=== PATIENT | female | born 1925 | race African-American/Black ===

== ENCOUNTER 2016-08-29 11:34 | Inpatient (IN) | payer MEDICARE, OTHER ==
--- NOTE | ~2016-08-29 | EKG ---
PATIENT: JOSE JEAN UNIT #: [id number] Ventricular Rate: 88 BPM Atrial Rate: 227 BPM QRS Duration: 84 ms Q-T Interval: 388 ms QTC Calculation(Bezet): 469 ms Calculated R [place]: 28 degrees Calculated T [place]: -53 degrees Diagnosis Line: Atrial fibrillation Diagnosis Line: Abnormal QRS-T angle, consider primary T wave Diagnosis Line: abnormality Diagnosis Line: Abnormal ECG Diagnosis Line: When compared with ECG of 30-MAY-2015 04:37, Diagnosis Line: Inverted T waves have replaced nonspecific T wave Diagnosis Line: abnormality in Inferior leads Diagnosis Line: Confirmed by JOSEPHINE GIBBONS MD ([id number]) on 08/30/2016 Diagnosis Line: 5:40:52 AM INTERPRETING MD: SHAI QUINONEZ
--- NOTE | ~2016-08-29 | EKG ---
PATIENT: JOSE JEAN UNIT #: [id number] Ventricular Rate: 71 BPM Atrial Rate: 72 BPM QRS Duration: 84 ms Q-T Interval: 436 ms QTC Calculation(Bezet): 473 ms Calculated R [place]: 2 degrees Calculated T [place]: -31 degrees Diagnosis Line: Atrial fibrillation Diagnosis Line: Nonspecific ST and T wave abnormality Diagnosis Line: Abnormal ECG Diagnosis Line: When compared with ECG of 29-AUG-2016 10:56, Diagnosis Line: Nonspecific T wave abnormality no longer evident Diagnosis Line: in Lateral leads Diagnosis Line: Confirmed by ANGELIQUE BARTON MD ([id number]) on Diagnosis Line: 09/01/2016 7:26:19 AM INTERPRETING MD: CATRACHITO
--- NOTE | ~2016-08-29 | HP ---
Unit #: [id number] #: [id number] Patient: JOSE JEAN [id number] [facility]. [place], [place] [address] [id number] I MR#: [id number] NAME: JOSE JEAN ROOM: 334 Age: 89 Sex: F Admission Date: 08/29/2016 : 1925 Attending Physician: Terry Daniel M.D. Primary Care Physician: Kiya Moreno A.P.R.N. 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 Apparently, she has been out of her Lasix for two weeks and been slowly and progressively short of air until it got markedly worse this morning, at which time she arrived in the emergency room. She had a fairly elevated BNP. Chest x-ray was consistent with CHF, and the patient is admitted for further evaluation and treatment. Patient's initial cardiac enzymes are within normal limits. She was not hypoxic on room air but is hypertensive. She has already been seen by Cardiology and been started on IV Lasix. Currently, she appears to be comfortable sitting in bed at about 30-degree angle without any oxygen on. The patient is a poor historian, and there is no family here. She is unclear about her medications that she takes at home, but on past medical history, there is a listed allergy to ibuprofen. Her medications per her own typed out list brought to the ER shows prescriptions for Namzaric 20/10 at 1 daily, Januvia 100 mg daily, allopurinol 300 mg daily, gabapentin 100 mg daily, paricalcitol 1 mg daily, Centrum Silver 1 daily, hydralazine 50 mg b.i.d., Coreg 6.25 mg b.i.d., Lasix 120 mg daily, warfarin 3 mg daily, simvastatin 10 mg daily, MiraLax 17 grams daily p.r.n., Lantus 30 units a.m. and 10 units p.m. with meals, Symbicort 160/4.5 at 2 puffs q.12, Proventil 2 puffs q.i.d. p.r.n., and nitroglycerin patch 0.1 mg daily. PAST SURGICAL HISTORY 1. Some sort of right shoulder surgery. 2. Bilateral hip replacements. 3. Open reduction and internal fixation of right femoral fracture. PAST SURGICAL HISTORY 1. Chronic atrial fibrillation. 2. Chronic anticoagulation. 3. 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 4. Congestive heart failure. 5. Deep vein thrombosis. 6. Hyperlipidemia. 7. Hypertension. 8. Asthma. 9. Osteoarthritis. 10. Dementia. 11. Chronic kidney disease stage 3. Unit #: [id number] #: [id number] Patient: JOSE JEAN SOCIAL HISTORY Prior smoker. No alcohol or street drug use. . FAMILY HISTORY Noncontributory. PHYSICAL EXAMINATION GENERAL: She is awake, alert, oriented x2, and in no acute distress. VITAL SIGNS: Afebrile, pulse 84, respirations 22, blood pressure 188/78, and room air O2 saturation 97%. HEENT: Unremarkable. NECK: Supple without JVD, bruits, adenopathy, or thyromegaly. CHEST: Diffusely decreased breath sounds with bibasilar rales. HEART: Irregularly irregular without an S3 gallop or murmur appreciated. ABDOMEN: Soft, nondistended, and nontender, with positive bowel sounds and no hepatosplenomegaly. EXTREMITIES: With 2+ pitting edema of the bilateral lower extremities with chronic venous stasis changes in the pretibial areas. GENITOURINARY/RECTAL: Deferred. NEUROLOGIC: Grossly intact except for poor memory. DIAGNOSTIC STUDIES LABORATORY: CBC normal except for a platelet count of 115,000. Cardiac enzymes normal x2 sets. CMP normal except for a BUN of 22, creatinine 1.5, and a GFR of 35.7. Alkaline phosphatase is 281. BNP is 590. PT-INR is 1.4. IMAGING: Chest x-ray no official report, but per the ER physician, showed CHF. CARDIOLOGY: EKG shows atrial fibrillation with an abnormal T wave but is otherwise normal. Rate was 88 beats per minute. IMPRESSION 1. Recurrent congestive heart failure secondary to noncompliance. 2. Chronic kidney disease stage 3. 3. Gout. 4. Subtherapeutic prothrombin time. 5. Thrombocytopenia. 6. Hypertension. 7. Dementia. 8. Chronic atrial fibrillation. 9. Hyperlipidemia. 10. Type 2 diabetes mellitus with peripheral neuropathy and nephropathy. 11. Asthma. 12. History of deep vein thrombosis. PLAN Diurese with IV Lasix. Lower blood pressure. Increase warfarin. Override with Lovenox 30 mg subcutaneous q.24 hours and adjust it for renal failure until her PT-INR is above 2. Healthy heart diet with 1800 mL fluid restriction. Cardiology has been consulted. Further evaluation pending results of the above. Renal function and prothrombin times will be followed on a daily basis. Dictated by Terry Daniel M.D. Unit #: [id number] #: [id number] Patient: JOSE JEAN LARS/campos TD: 08/29/2016 18:19 JOB #: [id number] HISTORY AND PHYSICAL Page 1 of 1 X Terry Daniel MD X HISTORY AND PHYSICAL
--- NOTE | ~2016-08-29 | DS ---
Unit #: [id number] #: [id number] Patient: JOSE JEAN [id number] [address] [place], [place] [address] [id number] I MR#: [id number] NAME: JOSE JEAN ROOM: 334 Age: 89 Sex: F Admission Date: 08/29/2016 : 1925 Discharge Date: 09/07/2016 Attending Physician: Terry Daniel M.D. Primary Care Physician: Kiya Moreno A.P.R.N. DISCHARGE SUMMARY PRINCIPAL DISCHARGE DIAGNOSES 1. Acute on chronic diastolic congestive heart failure. 2. Chronic kidney disease stage 3. 3. Gout. 4. Thrombocytopenia. 5. Hypertension. 6. Dementia. 7. Chronic atrial fibrillation with significant pauses. 8. Subtherapeutic ProTime. 9. Hyperlipidemia. 10. Type 2 diabetes mellitus with peripheral neuropathy and nephropathy. 11. Asthma. 12. History of deep vein thrombosis. PROCEDURES None. CONSULTANTS Dr. Milner. 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 She apparently stopped taking her Lasix 2 weeks prior to admission. She slowly but surely became more and more short of breath to the point where she became markedly worse on the morning of admission. In the ER she had a fairly elevated BNP. Chest x-ray was consistent with CHF. Initial cardiac enzymes were normal. She was hypertensive and admitted for further evaluation and therapy. On admission her platelet count was 115,000. Cardiac enzymes were normal x2 sets. BUN was 22, creatinine 1.5, GFR 35, alkaline phosphatase 281. BNP 590. INR was 1.4. EKG - A fib, abnormal T wave; otherwise, normal. HOSPITAL COURSE Admitted to a monitored bed. Started on IV Lasix. Started on subcu Lovenox. Cardiology was consulted. Healthy heart diet, 1,800 mL fluid restriction. ProTimes followed. Patient developed some significant pauses while here. Pacemaker was entertained, but the family refused. Two-D echo showed an EF of 50% to 55%, moderate concentric left ventricular hypertrophy, septal hypokinesis, moderate mitral regurgitation, mild mitral stenosis. right ventricular systolic pressure 51 mmHg. Patient Unit #: [id number] #: [id number] Patient: JOSE JEAN unable to get off O2 with hypoxemia on room air. Warfarin was held for the pacemaker but then had to be restarted after they refused pacemaker placement. Adjustments were made in her antihypertensives, as well as her other medications. Currently she is back on her warfarin, covered with Lovenox until INR is above 2. She apparently has a bed at [facility] and will be transferred today. DISCHARGE DIET She is currently on heart healthy diet, constant carb diet, 1,800 mL fluid restriction. FOLLOWUP Daily ProTimes. Have a CBC and a BMP in about 3 days. CURRENT MEDS 1. Combivent unit dose Mini-Neb q.i.d. 2. Tylenol 650 q. 4 p.r.n. for pain or fever. 3. Lovenox 100 mg subcu daily until INR is equal to or above 2. 4. Warfarin 5 mg daily. Hold for INR above 3. 5. Neurontin 100 mg daily. 6. Januvia 50 mg daily. 7. Dulera 100/5 two puffs q.12. 8. Norvasc 5 mg b.i.d. 9. MiraLAX 17 grams daily. 10. Namenda XR 28 mg daily. 11. Aricept 10 mg daily. 12. Furosemide 40 mg p.o. b.i.d. 13. Zocor 10 mg p.o. q.h.s. 14. Hydralazine 50 mg q.6 hours. 15. Levemir 20 units a.m. and 5 units p.m. 16. Low dose sliding scale insulin a.c. and h.s. 17. Zyloprim 300 mg daily. 18. Multivitamin 1 daily. 19. Zemplar 1 mcg daily. 20. Isosorbide dinitrate 40 mg p.o. b.i.d. 21. O2 at 2 liters nasal cannula continuously. Dictated by... Terry Daniel M.D. Abdirashid TD: 09/07/2016 08:42 JOB #: [id number] DISCHARGE SUMMARY Page 1 of 1 X Terry Daniel MD DISCHARGE SUMMARY
--- NOTE | ~2016-08-29 | CT57 ---
[facility] A Service of [facility] & [facility] RADIOLOGY TEXT RESULTS PATIENT: JOSE JEAN LOCATION: [facility] 334-01 : [birth year] UNIT #: [id number] AGE: [address]: Terry Daniel MD SEX: F ORDER DR: [id number] [facility] [address] [facility]. [place], [place] [address] [id number] I MR#: [id number] Acc #: [id number] NAME: JOSE JEAN : 1925 SEX: F STUDY DATE/TIME: 09/03/2016 9:58 UNIT: [address] ROOM: [facility] STUDY DESCRIPTION: CT Chest Wo Cont Attending Physician: Terry Daniel M.D. Ordering Physician: Terry Daniel M.D. Primary Care Physician: Kiya Moreno A.P.R.N. MEDICAL IMAGING REPORT This report is preliminary unless electronic signature is present EXAM Chest CT 09/03 INDICATIONS Left lower lobe opacity on chest x-ray. CHF and shortness of air. Cough. Bilateral lower extremity swelling. Symptoms since 08/25/2016. History of hypertension. TECHNIQUE Axial noncontrast images were obtained through the chest. Multiplanar reformats were obtained. This CT exam was performed with one or more of the following radiation dose reduction techniques: automatic exposure control, adjustment of mA and/or kV according to patient size, and iterative reconstruction. COMPARISON STUDIES Comparison made with 05/31/2015. FINDINGS Heart is enlarged. There is dense mitral annulus calcification. There is diffuse atherosclerotic disease. There is no pericardial effusion. There are small bilateral pleural effusions. No adenopathy is seen. Patient has a right shoulder arthroplasty. Severe degenerative disease is noted in the left shoulder. There is some infiltrate in both lower lobes which may simply reflect compressive atelectasis. Pneumonia should be excluded clinically. Minimal infiltrate or atelectasis noted in the lingula. No pneumothorax. Continuation through the upper abdomen shows gallstones and atherosclerotic disease. There is a right renal cyst. IMPRESSION 1. Small bilateral effusions with consolidations in the lower lobes and STS. [facility] A Service of [facility] & [facility] RADIOLOGY TEXT RESULTS PATIENT: JOSE JEAN LOCATION: [facility] 334-01 : [birth year] UNIT #: [id number] AGE: [address]: Terry Daniel MD SEX: F ORDER DR: to a lesser degree in the lingula. Findings are potentially simply due to compressive atelectasis. Pneumonia should be excluded clinically. 2. Cardiomegaly with atherosclerotic disease. There is mitral annulus calcification. 3. Cholelithiasis. Dictated by... John Shahid Jr., M.D. THIS IS AN ELECTRONICALLY VERIFIED REPORT John Shahid Jr., M.D. at 09/03/2016 2:29 PM THOMAS/marcus TD: 09/03/2016 11:22 JOB #: [id number] MEDICAL IMAGING REPORT Page 1 of 1 COPY
--- NOTE | ~2016-08-29 | CO ---
Unit #: [id number] #: [id number] Patient: JOSE JEAN [id number] [address] [place], [place] [address] [id number] I MR#: [id number] NAME: JOSE JEAN ROOM: 334 Age: 89 Sex: F Admission Date: 08/29/2016 : 1925 Attending Physician: Terry Daniel M.D. Primary Care Physician: Kiya Moreno A.P.R.N. CONSULTATION REPORT REASON FOR CONSULTATION Congestive heart failure. HISTORY OF PRESENT ILLNESS This is an 89-year-old female, who is known to Dr. Quezada, who has a history of hypertension and permanent atrial fibrillation, where she is on anticoagulation with Coumadin. She has been told to have congestive heart failure in the past. She has dementia and is cared for by her 2 children. She comes to the emergency room with worsening dyspnea over the past 2 weeks. According to the daughter, the patient usually sits in a recliner, but had to lean over the walker to sleep, because of dyspnea. She has no lower extremity edema that has developed blisters. She was on Lasix, but the dose was increased recently to 1-1/2 tablets. She ran out of her diuretics a week ago. Because of dementia, the patient does not always take her p.m. medications. She reports no chest pain or dizziness. She has occasional palpitations. Her daughter has expressed it has been difficult to take care of her mother and may want assisted placement. In the emergency room, BNP was elevated at 540. Her chest x-ray was noted for congestive heart failure and atelectasis. Troponin within normal limits with no acute ischemic changes on her EKG. INR subtherapeutic at 1.4. PAST MEDICAL HISTORY 1. 2D echocardiogram on 02/07/2012 shows an ejection fraction equal to 50% to 55%. Left and right atrium mildly dilated. Mild mitral regurgitation and mild tricuspid regurgitation. 2. Hypertension. 3. Hyperlipidemia. 4. Congestive heart failure. 5. Permanent atrial fibrillation, on anticoagulation with Coumadin. 6. Plh-bpeprfd-fkaulohwp diabetes mellitus, type 2. 7. Asthma. 8. Chronic kidney disease. 9. History of DVT. 10. Dementia. 11. Former smoker. PAST SURGICAL HISTORY 1. Bilateral knee replacement. 2. Open reduction and internal fixation of right femoral fracture. SOCIAL HISTORY Unit #: [id number] #: [id number] Patient: JOSE JEAN The patient lives with her son. Both the son and daughter who lives across the street, takes care of her. She quit smoking more than 50 years ago. Denies illicit drug or alcohol use. Ambulates with a walker. FAMILY HISTORY Negative for coronary artery disease. ALLERGIES Ibuprofen. HOME MEDICATIONS Namzaric 28/10 mg daily, Januvia 100 mg daily, allopurinol 300 mg daily, Neurontin 100 mg daily, paricalcitol 1 mcg daily, multivitamin one tablet daily, hydralazine 50 mg b.i.d., carvedilol 6.25 mg b.i.d., furosemide 120 mg daily, Coumadin 3 mg daily, simvastatin 10 mg daily, MiraLax 17 g daily p.r.n., Lantus 30 units subcu at breakfast and 10 units at dinner, Symbicort 80/4.5 mcg 2 puffs b.i.d., albuterol 2 puffs b.i.d. p.r.n., nitroglycerin 0.1 mg topically daily. REVIEW OF SYSTEMS CONSTITUTIONAL: Negative for fever or chills. Reports no weight gain or weight loss. HEENT: No headache, hearing or vision changes, difficulty with swallowing. No dizziness. CARDIOVASCULAR: Has no symptoms of angina. Has occasional palpitations. Positive for paroxysmal nocturnal dyspnea and orthopnea. Denies syncope or near syncope. RESPIRATORY: Reports dyspnea at rest, it is worse on exertion. Has a productive cough with white sputum. No hemoptysis. GASTROINTESTINAL: No abdominal pain, nausea, or vomiting. No constipation or melena. EXTREMITIES: Positive for lower extremity edema. PHYSICAL EXAMINATION VITAL SIGNS: Blood pressure 174/84, heart rate 64, temperature 98.0. GENERAL: This is an 89-year-old obese white female, who is in no acute respiratory distress. NEUROLOGIC: She is awake, alert, and oriented. There are no focal weaknesses. NECK: Trachea is midline. No thyromegaly or lymphadenopathy. No jugular venous distention. HEART: S1 and S2. Heart sounds are normal. No murmurs. No rubs or clicks. Irregularly irregular rhythm. LUNGS: With diminished breath sounds in both lungs with expiratory wheezes in the upper lungs bilaterally. No rales or rhonchi. ABDOMEN: Soft and obese with bowel sounds are present. No masses appreciated. No organomegaly. EXTREMITIES: With 2+ lower extremity edema. SKIN: Warm and dry. Noted for blisters on bilateral lower extremities. DIAGNOSTIC STUDIES LABORATORY RESULTS: Glucose 130, BUN 33, creatinine 1.5, sodium 144, potassium 4.0, BNP 540. Pro-time 14.5, INR 1.4. Troponin less than 0.05. White count 8.1, hemoglobin 12.2, hematocrit 38.9, and platelet count 115. IMAGING STUDIES: Chest x-ray shows mild vascular congestion. There is bibasilar atelectasis greater on the left. Cardiomegaly. Unit #: [id number] #: [id number] Patient: JOSE JEAN CARDIOVASCULAR STUDIES: EKG shows atrial fibrillation with controlled ventricular rate of 88 beats per minute, there is T-wave inversion in III and aVF. IMPRESSION 1. Acute on chronic questionable systolic/diastolic heart failure. 2. Uncontrolled hypertension. 3. Permanent atrial fibrillation in a controlled ventricular rate with subtherapeutic INR. 4. Chronic kidney disease. 5. Dementia. 6. Diabetes mellitus type 2. PLAN 1. We will continue IV diuretics. 2. Place the patient on fluid restriction. 3. Check echocardiogram for left ventricular systolic function given cardiomegaly noted on chest x-ray. 4. Continue beta-mckenna for rate control. 5. No [place] inhibitor or ARB for congestive heart failure secondary to chronic kidney disease. 6. Add nitrate to hydralazine for [place] like effect for congestive heart failure. 7. INR is subtherapeutic. We will continue to monitor Coumadin levels. 8. Further recommendations to follow pending Dr. Milner's evaluation. 9. Follow up with Dr. Quezada at discharge. Thank you for allowing us to assist in this patient's care. Dictated by... Apolinar Lopez A.P.R.N. for Nick Lock/nico TD: 08/30/2016 03:55 JOB #: [id number] Ivan Quezada, M.D. CONSULTATION REPORT Page 1 of 1 X Apolinar Lopez APRN CONSULTATION REPORT
--- NOTE | ~2016-08-29 | CR72 ---
[facility] A Service of [facility] RADIOLOGY TEXT RESULTS PATIENT: JOSE JEAN LOCATION: [facility] 334-01 : [birth year] UNIT #: [id number] AGE: [address]: Terry Daniel MD SEX: F ORDER DR: [id number] [facility] [address] [facility]. [place], [place] [address] [id number] MR#: [id number] Acc #: [id number] NAME: JOSE JEAN : 1925 SEX: F STUDY DATE/TIME: 08/29/2016 10:51 UNIT: ISA ROOM: STUDY DESCRIPTION: CR Chest Single View Portable Attending Physician: Alexandro Antonio D.O. Ordering Physician: Alexandro Antonio D.O. Primary Care Physician: Kiya Moreno A.P.R.N. MEDICAL IMAGING REPORT This report is preliminary unless electronic signature is present EXAM AP portable chest 08/29/2016 HISTORY 89-year-old female in the ED complaining of shortness of air and weakness beginning earlier today. TECHNIQUE AP portable chest x-ray. FINDINGS Moderately severe cardiomegaly is stable since 05/30/2015. Pulmonary venous redistribution and diffusely increased and indistinct and indistinct interstitial markings suggesting probable mild vascular congestion. Probable small bilateral pleural effusions with bibasilar pulmonary atelectasis, greater on the left. Low lung volumes. Right shoulder arthroplasty. IMPRESSION Cardiomegaly and radiographic findings suggesting mild vascular congestion. Dictated by... Bethel Daily M.D. THIS IS AN ELECTRONICALLY VERIFIED REPORT Bethel Daily M.D. at 08/29/2016 3:58 PM RGW/key TD: 08/29/2016 12:36 JOB #: [id number] [facility] A Service of [facility] RADIOLOGY TEXT RESULTS PATIENT: JOSE JEAN LOCATION: [facility] 334-01 : [birth year] UNIT #: [id number] AGE: [address]: Terry Daniel MD SEX: F ORDER DR: MEDICAL IMAGING REPORT Page 1 of 1 COPY
--- NOTE | ~2016-08-29 | CR63 ---
[facility] A Service of [facility] & [facility] RADIOLOGY TEXT RESULTS PATIENT: JOSE JEAN LOCATION: [facility] 334- : [birth year] UNIT #: [id number] AGE: [address]: Terry Daniel MD SEX: F ORDER DR: [id number] [facility] [address] [place], [place] [address] [id number] I MR#: [id number] Acc #: [id number] NAME: JOSE JEAN : 1925 SEX: F STUDY DATE/TIME: 09/02/2016 7:40 UNIT: [address] ROOM: [facility] STUDY DESCRIPTION: CR Chest 2 View Attending Physician: Terry Daniel M.D. Ordering Physician: Terry Daniel M.D. Primary Care Physician: Kiya Moreno A.P.R.N. MEDICAL IMAGING REPORT This report is preliminary unless electronic signature is present EXAM Two view chest. COMPARISON Single view chest dated 08/29/2016 at 10:51 hours. HISTORY Shortness of air with activity, CHF since 08/29/2016. FINDINGS Two view chest was obtained. Stable cardiomegaly/pericardial effusion and opacity in the retrocardiac left lower lobe extending to the left lateral CP angle. There could be underlying associated atelectasis/infiltrate and/or mild left pleural effusion. Stable. Diffuse prominence of the interstitial markings are noted with slightly prominent bilateral juan manuel. Pulmonary vascular congestion is in the differential consideration in the appropriate clinical setting. No pneumothorax. Status post right shoulder total arthropathy. Severe left shoulder osteoarthritic changes are present. Lateral view is limited in evaluation despite repeats. Dictated by... Lis Colin M.D. THIS IS AN ELECTRONICALLY VERIFIED REPORT Lis Colin M.D. at 09/02/2016 5:18 PM CPR/dj TD: 09/02/2016 08:47 JOB #: [id number] MEDICAL IMAGING REPORT Page 1 of 1 COPY
--- NOTE | ~2016-08-29 | BMI ---
[facility] Nutrition Therapy DATE: 08/31/16 Patient: JOSE JEAN Physician: CHINO Address: [address] [place] [address] Room/Bed: [address] [place] [address], Zip: [place] [address] Admit Date: 08/29/16 Date of : [birth year] Height: 4 9 Weight: 198 90 HIGH BMI NOTE: ANTHROPOMETRICS: HT: 4'9" WT: 90 KG BMI: 42.9 INTERVENTION: 1. CONSISTENT CARB + FLUID RESTRICTION PER MD RECOMMENDATIONS: 1. ADD HEART HEALTHY TO CURRENT DIET ORDER. Respectfully, EARLENE CRUZ RD, LD Food and Nutritional Services [facility] cc: client file
[2016-08-29 11:21] LABS: BASOPHIL% 0.6 % (0-2.5); EOSINOPHIL% 0.4 % (0.0-7.0); HEMATOCRIT 38.9 % (35.0-45.0); HEMOGLOBIN 12.2 gm/dL (12.0-16.0); MEAN CELL VOLUME 99.2 FL (83-96); MEAN CORPUSCULAR HEMOGLOBIN 31.2 PG (28-34); MEAN CORPUSCULAR HGB CONC 31.4 g/dL (30-36); MEAN PLATELET VOLUME 10.2 FL (6.5-11.5); MONOCYTE# 0.7 X10e3 (0-1.0); MONOCYTE% 8.9 % (3.0-12.0); NEUTROPHIL# 6.3 X10e3 (1.5-7.1); NEUTROPHIL% 78.1 % (40-75); PLATELET COUNT 115 X10e3 (140-420); RED BLOOD COUNT 3.92 X10e (3.90-5.30); RED CELL DISTRIBUTION WIDTH 16.8 % (11.0-15.5); WHITE BLOOD COUNT 8.1 X10e3 (4.0-10.5)
[2016-08-29 11:23] LABS: DIFF IND NO
[2016-08-29 11:34] LABS: INR 1.4; PARTIAL THROMBOPLASTIN TIME 30.6 SECONDS (23.5-31.3); PROTHROMBIN TIME (PATIENT) 14.5 SECONDS (9.6-11.5)
[~2016-08-29 11:34] MED LIST: ACETAMINOPHEN PO; ALLEGRA180 MG PO; ALLOPURINOL300 MG PO; AMIODARONE PO; AMOXIL500 M1 PO; AUGMENTIN PO; BACTRIM DS TABL1 TA2 PO; BACTROBAN22 GM; BENZONATATE200 M1 PO; COLACE50 MG PO; COUMADIN3 MG PO; HYDRALAZINE HCL50 MG PO; JANUVIA PO; LANTUS100 U/M1 SQ; LASIX80 MG PO; MILK OF MAGNESIA PO; PRAVACHOL20 MG PO; PROVENTIL0.83 MG/ML IH; SYMBICORT INH; WARFARIN SODIUM4 MG PO; ZEMPLAR1 MCG PO; ZOFRAN PO
[2016-08-29 11:37] LABS: POC - CKMB 2.2 ng/mL (0.0-7.9); POC - TROPONIN <0.05 ng/mL (<=0.05)
[2016-08-29] MEDS ORDERED: JANUVIA100 MG PO (11:54)
[2016-08-29] MEDS ORDERED: ALLOPURINOL300 MG PO (11:54)
[2016-08-29] MEDS ORDERED: NAMZARIC 28 MG1 EACH PO (11:54)
[2016-08-29 11:55] LABS: ALBUMIN SERUM 3.7 g/dL (3.5-5.0); BILIRUBIN, DIRECT 0.3 mg/dL (0.0-0.2); BILIRUBIN,INDIRECT 0.6 mg/dL (0.0-0.9); BILIRUBIN,TOTAL 0.9 mg/dL (0.2-2.0); CALCIUM SERUM 9.1 mg/dL (8.4-10.2); CREATININE SERUM 1.5 mg/dL (0.6-1.4); GLOM FILT RATE Estimated 35.7 mL/min (>60); PROTEIN TOTAL SERUM 7.4 g/dL (6.0-8.3)
[2016-08-29] MEDS ORDERED: CENTRUM SILVER PO (11:55)
[2016-08-29] MEDS ORDERED: NEURONTIN100 MG PO (11:55)
[2016-08-29] MEDS ORDERED: PARICALCITOL1 MCG PO (11:55)
[2016-08-29] MEDS ORDERED: LASIX80 MG PO (11:56)
[2016-08-29] MEDS ORDERED: SIMVASTATIN10 MG PO (11:56)
[2016-08-29] MEDS ORDERED: HYDRALAZINE HCL50 MG PO (11:56)
[2016-08-29] MEDS ORDERED: COUMADIN3 MG PO (11:56)
[2016-08-29] MEDS ORDERED: COREG6.25 MG PO (11:56)
[2016-08-29] MEDS ORDERED: MIRALAX17 GM PO (11:57)
[2016-08-29] MEDS ORDERED: LANTUS100 UNITS/ SUBQ ×2 (11:57)
[2016-08-29] MEDS ORDERED: ALBUTEROL17 GM INH (11:58)
[2016-08-29] MEDS ORDERED: NITRO-DUR 0.1M0.1 MG EXT (11:58)
[2016-08-29] MEDS ORDERED: SYMBICORT80 INH (11:58)
[2016-08-29 13:05] LABS: POC - CKMB 1.6 ng/mL (0.0-7.9); POC - TROPONIN <0.05 ng/mL (<=0.05)
[2016-08-30 06:44] LABS: INR 1.4; PROTHROMBIN TIME (PATIENT) 15.1 SECONDS (9.6-11.5)
[2016-08-30 07:33] LABS: BUN/CREATININE RATIO 23.57; CALCIUM SERUM 8.7 mg/dL (8.4-10.2); CREATININE SERUM 1.4 mg/dL (0.6-1.4); GLOM FILT RATE Estimated 38.8 mL/min (>60); MAGNESIUM 1.9 mg/dL (1.6-3.0); POTASSIUM 3.6 mmol/L (3.5-5.1)
[2016-08-31 05:36] LABS: INR 1.7; PROTHROMBIN TIME (PATIENT) 18.1 SECONDS (9.6-11.5)
[2016-08-31 05:56] LABS: BUN/CREATININE RATIO 21.87; CALCIUM SERUM 8.2 mg/dL (8.4-10.2); CREATININE SERUM 1.6 mg/dL (0.6-1.4); MAGNESIUM 1.8 mg/dL (1.6-3.0); POTASSIUM 3.6 mmol/L (3.5-5.1)
[2016-09-01 08:01] LABS: HEMATOCRIT 35.6 % (35.0-45.0); HEMOGLOBIN 11.3 gm/dL (12.0-16.0); MEAN CELL VOLUME 98.5 FL (83-96); MEAN CORPUSCULAR HEMOGLOBIN 31.3 PG (28-34); MEAN CORPUSCULAR HGB CONC 31.7 g/dL (30-36); MEAN PLATELET VOLUME 10.6 FL (6.5-11.5); RED BLOOD COUNT 3.61 X10e (3.90-5.30); RED CELL DISTRIBUTION WIDTH 16.7 % (11.0-15.5); WHITE BLOOD COUNT 4.9 X10e3 (4.0-10.5)
[2016-09-01 08:17] LABS: INR 1.6; PROTHROMBIN TIME (PATIENT) 17.4 SECONDS (9.6-11.5)
[2016-09-01 08:21] LABS: BUN/CREATININE RATIO 25.71; CALCIUM SERUM 8.6 mg/dL (8.4-10.2); CREATININE SERUM 1.4 mg/dL (0.6-1.4); GLOM FILT RATE Estimated 38.8 mL/min (>60); MAGNESIUM 2.3 mg/dL (1.6-3.0); POTASSIUM 3.8 mmol/L (3.5-5.1)
[2016-09-02 12:30] LABS: HEMATOCRIT 37.4 % (35.0-45.0); HEMOGLOBIN 11.9 gm/dL (12.0-16.0); MEAN CELL VOLUME 98.2 FL (83-96); MEAN CORPUSCULAR HEMOGLOBIN 31.3 PG (28-34); MEAN CORPUSCULAR HGB CONC 31.9 g/dL (30-36); MEAN PLATELET VOLUME 9.7 FL (6.5-11.5); RED BLOOD COUNT 3.81 X10e (3.90-5.30); RED CELL DISTRIBUTION WIDTH 16.7 % (11.0-15.5); WHITE BLOOD COUNT 6.3 X10e3 (4.0-10.5)
[2016-09-02 12:52] LABS: INR 1.7; PROTHROMBIN TIME (PATIENT) 18.6 SECONDS (9.6-11.5)
[2016-09-02 13:03] LABS: BUN/CREATININE RATIO 22.5; CALCIUM SERUM 9.2 mg/dL (8.4-10.2); CREATININE SERUM 1.6 mg/dL (0.6-1.4); MAGNESIUM 2.3 mg/dL (1.6-3.0); POTASSIUM 4.1 mmol/L (3.5-5.1)
[2016-09-03 08:15] LABS: HEMATOCRIT 37.4 % (35.0-45.0); HEMOGLOBIN 11.9 gm/dL (12.0-16.0); MEAN CELL VOLUME 99.1 FL (83-96); MEAN CORPUSCULAR HEMOGLOBIN 31.4 PG (28-34); MEAN CORPUSCULAR HGB CONC 31.7 g/dL (30-36); MEAN PLATELET VOLUME 10.5 FL (6.5-11.5); RED BLOOD COUNT 3.78 X10e (3.90-5.30); RED CELL DISTRIBUTION WIDTH 16.1 % (11.0-15.5); WHITE BLOOD COUNT 5.4 X10e3 (4.0-10.5)
[2016-09-03 08:21] LABS: INR 1.7; PROTHROMBIN TIME (PATIENT) 18.1 SECONDS (9.6-11.5)
[2016-09-03 08:38] LABS: BUN/CREATININE RATIO 27.5; CALCIUM SERUM 9.3 mg/dL (8.4-10.2); CREATININE SERUM 1.6 mg/dL (0.6-1.4); MAGNESIUM 2.2 mg/dL (1.6-3.0); POTASSIUM 3.8 mmol/L (3.5-5.1)
[2016-09-04 07:52] LABS: BUN/CREATININE RATIO 27.22; CREATININE SERUM 1.8 mg/dL (0.6-1.4); GLOM FILT RATE Estimated 28.6 mL/min (>60)
[2016-09-05 06:19] LABS: HEMATOCRIT 33.3 % (35.0-45.0); HEMOGLOBIN 10.6 gm/dL (12.0-16.0); MEAN CELL VOLUME 98.1 FL (83-96); MEAN CORPUSCULAR HEMOGLOBIN 31.1 PG (28-34); MEAN CORPUSCULAR HGB CONC 31.7 g/dL (30-36); MEAN PLATELET VOLUME 10.5 FL (6.5-11.5); RED BLOOD COUNT 3.4 X10e (3.90-5.30); RED CELL DISTRIBUTION WIDTH 15.6 % (11.0-15.5); WHITE BLOOD COUNT 4.2 X10e3 (4.0-10.5)
[2016-09-05 06:42] LABS: INR 1.3; PROTHROMBIN TIME (PATIENT) 13.8 SECONDS (9.6-11.5)
[2016-09-05 06:54] LABS: BUN/CREATININE RATIO 27.5; CALCIUM SERUM 9.4 mg/dL (8.4-10.2); GLOM FILT RATE Estimated 25.2 mL/min (>60); POTASSIUM 4.4 mmol/L (3.5-5.1)
[2016-09-06 06:22] LABS: INR 1.2; PROTHROMBIN TIME (PATIENT) 12.3 SECONDS (9.6-11.5)
[2016-09-06 06:51] LABS: BUN/CREATININE RATIO 29.47; CALCIUM SERUM 9.1 mg/dL (8.4-10.2); CREATININE SERUM 1.9 mg/dL (0.6-1.4); GLOM FILT RATE Estimated 26.8 mL/min (>60); POTASSIUM 4.2 mmol/L (3.5-5.1)
[2016-09-07 06:34] LABS: HEMATOCRIT 34.1 % (35.0-45.0); MEAN CELL VOLUME 98.2 FL (83-96); MEAN CORPUSCULAR HEMOGLOBIN 31.7 PG (28-34); MEAN CORPUSCULAR HGB CONC 32.3 g/dL (30-36); MEAN PLATELET VOLUME 9.9 FL (6.5-11.5); RED BLOOD COUNT 3.47 X10e (3.90-5.30); RED CELL DISTRIBUTION WIDTH 15.2 % (11.0-15.5); WHITE BLOOD COUNT 5.7 X10e3 (4.0-10.5)
[2016-09-07 06:42] LABS: INR 1.3; PROTHROMBIN TIME (PATIENT) 13.4 SECONDS (9.6-11.5)
[2016-09-07 07:01] LABS: BUN/CREATININE RATIO 32.77; CALCIUM SERUM 9.6 mg/dL (8.4-10.2); CREATININE SERUM 1.8 mg/dL (0.6-1.4); GLOM FILT RATE Estimated 28.6 mL/min (>60); MAGNESIUM 2.3 mg/dL (1.6-3.0); POTASSIUM 4.4 mmol/L (3.5-5.1)
== END 2016-09-07 14:35 | DRG 291 ==
LOC: CED 11:34 → CEDOF 12:30 → C3A PCU 14:47
PROVIDERS: Emergency Medicine; Internal Medicine; Internal Medicine Cardiovascular Disease; Nurse Practitioner
PROC: B246ZZZ Ultrasonography of Right and Left Heart (ICD-10-PCS; principal; 2016-08-30)
DX: I13.0 Hypertensive heart and chronic kidney disease with heart failure and stage 1 through stage 4 chronic kidney disease, or unspecified chronic kidney disease (principal); I50.33 Acute on chronic diastolic (congestive) heart failure; E11.21 Type 2 diabetes mellitus with diabetic nephropathy; D69.6 Thrombocytopenia, unspecified; N18.3 Chronic kidney disease, stage 3 (moderate); E11.22 Type 2 diabetes mellitus with diabetic chronic kidney disease; F03.90 Unspecified dementia, unspecified severity, without behavioral disturbance, psychotic disturbance, mood disturbance, and anxiety; E11.42 Type 2 diabetes mellitus with diabetic polyneuropathy; Z86.718 Personal history of other venous thrombosis and embolism; I48.2 Chronic atrial fibrillation; E78.5 Hyperlipidemia, unspecified; J45.909 Unspecified asthma, uncomplicated; M10.9 Gout, unspecified; Z79.01 Long term (current) use of anticoagulants; Z87.891 Personal history of nicotine dependence; Z96.653 Presence of artificial knee joint, bilateral; Z91.19 Patient's noncompliance with other medical treatment and regimen; R79.1 Abnormal coagulation profile; I27.2 Other secondary pulmonary hypertension
CPT/HCPCS: 36415; 71010; 71020; 71250; 80048; 80061; 80076; 82553; 82947; 83735; 83880; 84443; 84484; 85025; 85027; 85610; 85730; 93005; 93306; 94640; 94664; 94760; 96374; 97110; 97116; 97162; 97166; 97530; 97535; 99285; G8978-GP; G8979-GP; G8980-GP; G8987-GO; G8988-GO; G8989-GO; J1250; J1650; J1815; J1940; J3475